=== PATIENT | female | born 2000 | race Caucasian/White ===

== ENCOUNTER 2020-12-28 11:50 | Outpatient (RCR) | payer MEDICAID | END 2021-03-02 08:41 | disposition home or self-care (01) | LOC: WSPT 11:50 → EDBD 11:50 → WSPT 13:00 | DX: M41.9 Scoliosis, unspecified (principal); M54.5 Low back pain ==

== ENCOUNTER 2021-01-11 14:53 | Emergency (ER) | payer MEDICAID ==
[~2021-01-11] VITALS: Ht 154.9 cm; Wt 61.4 kg
[2021-01-11 15:03] VITALS: TEMP 98.6
[2021-01-11 16:49] VITALS: BP 101/69; PULSE 74
== END 2021-01-11 16:49 | disposition home or self-care (01) ==
LOC: COL.ER 14:53
DX: R51.9 Headache, unspecified (principal); R11.0 Nausea
CPT/HCPCS: J1885

== ENCOUNTER 2021-09-12 15:26 | Emergency (ER) | payer MEDICAID ==
[~2021-09-12] VITALS: Ht 154.9 cm; Wt 61.4 kg
[2021-09-12 15:42] VITALS: TEMP 98.5
[2021-09-12 17:11] VITALS: BP 108/76; PULSE 72
== END 2021-09-12 17:12 | disposition home or self-care (01) ==
LOC: COL.ER 15:26
DX: R51.9 Headache, unspecified (principal)

== ENCOUNTER 2024-06-06 01:23 | Outpatient (CLI) | payer MEDICAID ==
[~2024-06-06] VITALS: Ht 154.9 cm; Wt 70.5 kg
[~2024-06-06 01:23] MED LIST: CARAFATE 1GM1 G PO; PRILOSEC 20MG20 MG PO
--- NOTE | 2024-06-06 01:35 | NUR ---
PT PRESENTS TO L&D WITH C/O HAVING A MUCUS DISCHARGE AND LOW BACK ACHE. DENIES BLEEDING, SHE DOES NOT THINK HER WATER BROKE BECAUSE IT IS MORE MUCUS. DENIES FEELING CONTRACTIONS, DENIES BLEEDING. PT ASSISTED TO BED, MONITORS PLACED ON HER ABD. NITRAZINE X 2 BOTH NEGATIVE. SVE /-2, CERVIX POSTERIOR.
[2024-06-06] MEDS ORDERED: LR 1,000 ML IV PRN (01:45)
[2024-06-06 02:00] VITALS: BP 96/50; PULSE 79; TEMP 98.3
--- NOTE | 2024-06-06 02:32 | NUR ---
PT AMB TO BR TO VOID.
[2024-06-06 02:45] VITALS: BP 101/61; PULSE 80; TEMP 98.1
--- NOTE | 2024-06-06 02:50 | NUR ---
DR GARCIA INFORMED PT IS HERE WITH C/O MUCUS WHEN SHE WENT TO THE BR AND LOW ABD PRESSURE. SHE IS NOT SURE IF HER WATER BROKE BECAUSE IT WAS JUST MUCUS AND NOT LIQUID CONSISTENCY. PT DENIES FEELING CTX'S OR BLEEDING. FHR CATEGORY 1. IRREGULAR CTX'S THAT PT IS NOT FEELING. CERVIAL EXAM WAS DONE TWICE AN HOUR APART. NO CERVICAL CHANGE NOTED AND THE SECOND VAG EXAM WAS MUCH HARDER TO GET TO THE CERVIX AND IT HAD MOVED BEHIND THE BABIES HEAD. ORDER TO DC PT TO HOME, INSTRUCT HER TO REST AND DRINK LOTS OF WATER. KEEP HER SCHEDULED APPOINTMENT.
--- NOTE | 2024-06-06 03:00 | NUR ---
PT GIVEN WRITTEN AND VERBAL DISCHARGE INSTRUCTIONS TO REST, DRINK MORE WATER, KEEP HER NEXT SCHEDULED APPOINTMENT AND RETURN IF SHE FEELS ANY GUSH OF FLUID OR STRONG REGULAR CONTRACTIONS. PT VERBALIZED UNDERSTANDING. DISCHARGE PAPERS SIGNED AND PT AMB OUT WITH HER .
== END 2024-06-06 03:00 | disposition home or self-care (01) ==
LOC: LDRO 01:23 → LDR 01:40 → LDRO 03:00
DX: O26.893 Other specified pregnancy related conditions, third trimester (principal); M54.50 Low back pain, unspecified; Z3A.38 38 weeks gestation of pregnancy
CPT/HCPCS: OP

== ENCOUNTER → 2024-06-11 | Outpatient (CLI) | payer MEDICAID ==
[~2024-06-11] VITALS: Ht 160 cm; Wt 69.1 kg
[~2024-06-11] MED LIST changes: +IBU600 MG PO; +LR 1,000 ML IV PRN; +PRENATAL TABLET PO
--- NOTE | 2024-06-11 20:10 | NUR ---
G2L1 at 38 weeks and 6 days arrives to hospital with complaint of contractions every "30 minutes or less". Denies vaginal bleeding but reports having more discharge. Reports good movement. Denies any problems this . Clean gown on. Oriented to room. Bed in low and locked position. Call light within reach. US and toco explained and applied. Admission assessment started. Vitals obtained. SVE 2/50/-3, ballotable, membranes intact. Records show SVE 2/50/-5 in office today.
[2024-06-11 20:30] VITALS: BP 107/50; PULSE 88; TEMP 98
--- NOTE | 2024-06-11 21:22 | NUR ---
Pt reports much movement over the last 15 minutes. Reviewed plan of care to recheck cervix, pt requesting to void before cervical exam.
[2024-06-11 21:40] VITALS: BP 109/59; PULSE 77
--- NOTE | 2024-06-11 21:40 | NUR ---
SVE unchanged. Pt reports no change in conctractions. Reviewed discharge plan and return precautions, verbalized understanding. Monitors off. Pt ambulated off unit with mother in stable condition.
== END ==
LOC: LDRO 20:03
DX: O47.1 False labor at or after 37 completed weeks of gestation (principal); Z3A.38 38 weeks gestation of pregnancy

== ENCOUNTER 2024-06-12 07:10 | Inpatient (IN) | payer MEDICAID ==
[2024-06-12] VITALS (37 sets, daily range): BP systolic 80–137; BP diastolic 43–73; PULSE 66–111; TEMP 97.6–98.9
[~2024-06-12] VITALS: Ht 160 cm; Wt 69.1 kg
[~2024-06-12 07:10] MED LIST changes: -IBU600 MG PO; -LR 1,000 ML IV PRN
--- NOTE | 2024-06-12 07:45 | NUR ---
714- Pt arrives on unit ambulatory with complaints of SROM at approx 0700 this morning. Pt states she was seen yesterday for labor check but was sent home. Oriented to room. Pt into bathroom to void and change into gown. 723- Pt into bed, EFM and TOCO on and tracing. O2 sat monitor on and tracing maternal HR. VSS. Assessments completed. Pt denies UCs/VB. Reports clear fluid with SROM. +FM per Pt.
[2024-06-12] MEDS ORDERED: LR 1,000 ML IV SCH ×2 (08:00→10:30)
[2024-06-12] MEDS ORDERED: LR 1,000 ML IV PRN ×2 (08:00)
--- NOTE | 2024-06-12 08:30 | NUR ---
0825- Consent forms discussed and signed, questions answered. Pt rates contraction pain 10/10 but coping well per this RN. Discusses epidural vs ambulation/BB. Pt wishes to void then ambulate/use BB. EFM and TOCO off.
[2024-06-12 08:46] LABS: BASO % 0.2 % (0.0-2.0); EOS % 0.3 % (0.0-4.0); GRAN # 6.6 K/mm3 (1.4-6.5); GRAN % 70.4 % (42.2-75.2); HEMOGLOBIN 10.6 g/dl (12.5-16.0); LYMPH % 21.6 % (20.0-51.0); MEAN CELL VOLUME 85 fl (80.0-100.0); MEAN CORPUSCULAR HEMOGLOBIN 28 pg (27-31); MEAN CORPUSCULAR HGB CONC 32 g/dl (33.0-37.0); MEAN PLATELET VOLUME 11.8 fl (7.4-10.4); MONO # 0.7 K/mm3 (0.1-0.6); MONO % 7.1 % (1.7-9.3); PLATELET COUNT 149 K/mm3 (130-400); RED BLOOD COUNT 3.86 M/mm3 (4.10-5.30); REDCELL DISTRIBUTION WIDTH-CV 13.6 % (11.5-14.5)
[2024-06-12 08:50] LABS: HEMATOCRIT 32.8 % (37.0-47.0)
--- NOTE | 2024-06-12 09:15 | NUR ---
3502- Dr Duncan and this RN at bedside, Pt transitions into bed. Bedside US by for position, noted to be vertex. MD discussed POC, Pt denies questions. Pt requests to remain in bed at this time. 912- Pt calls RN to bedside via call light. Pt very uncomfortable with contractions, requests epidural. Pt requests to void, EFM and TOCO off. Pt assisted into bathroom. Angel, CASTING CLEANER called for epidural placement. 09- Pt standing at bedside, leaning over bed to cope with UC pain. LR bolus initiated. This RN remains with Pt, coaching through [facility].
[2024-06-12] MEDS ORDERED: ROPivacaine PF 0.2% 200 ML IV ONE (09:39)
--- NOTE | 2024-06-12 10:00 | NUR ---
0944- PAPO Ortiz at bedside. Pt LL in bed, very uncomfortable with UCs. GUITAR REPAIRER okay with placing epidural in side lying position. 0950- Single shot by GUITAR REPAIRER. Pt tolerated well. 0958- Pt feeling pressure, SVE by this RN 4-5/100/-2. Pt assisted into semi-fowlers with WR. EFM and TOCO adjusted. This RN remains at bedside evaluating BPs and pain.
[2024-06-12] MEDS ORDERED: ePHEDrine 50 MG/10 ML VIAL IV PRN (10:30)
[2024-06-12] MEDS ORDERED: Ondansetron 4 MG/2 ML VIAL IV PRN (10:30)
[2024-06-12] MEDS ORDERED: diphenhydrAMINE 25 MG CAP PO PRN (10:30)
[2024-06-12] MEDS ORDERED: diphenhydrAMINE 50 MG/ML 1 ML VIAL IV PRN (10:30)
[2024-06-12] MEDS ORDERED: Naloxone 0.4 MG/ML VIAL IV PRN ×2 (10:30→15:45)
[2024-06-12] MEDS ORDERED: LR 500 ML IV PRN (10:30)
--- NOTE | 2024-06-12 10:30 | NUR ---
1016- FHR prolonged decel noted, Pt repositioned to LL. FHR heard to be slow but not able to trace on monitor, appears to be doubling with adjustment. Wolfgang, RN called to bedside to assist. Equipment gathered for FSE placement, SVE by this RN. Pt tolerated well. 1020- FHR returns to baseline of 135 bpm. This RN remains at bedside.
--- NOTE | 2024-06-12 11:00 | NUR ---
RN AT BEDSIDE, RECEIVED REPORT, PT DI, COMFORTABLE.
--- NOTE | 2024-06-12 14:02 | NUR ---
1330 SVE AT THIS TIME 10/100/+1. PT NOT FEELING PRESSURE. VS STABLE, FHR BASELINE 130 WITH ACCELERATIONS, NO DECELERATIONS. 1343 ROOM SET FOR DELIVERY, CALLED , BEGAN PUSHING WITH PT. 1350 AT BEDSIDE. 1402 VACUUM APPLIED D/T PROLONGED DECELERATION, PT UNDERSTANDS AND AGREED. 1 PULL, VACUUM REMOVED. VAVD PER . PT TOLERATED WELL. INFANT PLACED ON MATERNAL ABDOMEN WHERE CORD WAS CLAMPED AND CUT. PLACED ON MATERNAL ABDOMEN, CARE ASSUMED BY BONNY SIMMS. 1406 OF PLACENTA PER . PT TOLERATED WELL. LOCHIA WNL, FUNDUS FIRM AT U, PITOCIN BOLUS INFUSING PER PROTOCOL, VS STABLE. EPIDURAL PUMP OFF.PERINEUM INTACT. ICE PACK PAD PLACED. ROOM PUT BACK TOGETHER.
[2024-06-12] MEDS ORDERED: LR & Oxytocin 500 ML IV ONE (14:14)
[2024-06-12] MEDS ORDERED: Magnes Hydrox (MOM) 80 MG/ML 30 ML CUP PO PRN (14:15)
[2024-06-12] MEDS ORDERED: Loratadine 10 MG TAB PO PRN (14:15)
[2024-06-12] MEDS ORDERED: Acetaminophen 500 MG TAB PO SCH (15:45)
[2024-06-12] MEDS ORDERED: Measles/Mumps/Rubella Virus Vaccine Live w Diluent 0.5 ML VIAL SQ SCH (15:45)
[2024-06-12] MEDS ORDERED: Ibuprofen 600 MG TAB PO SCH (15:45)
[2024-06-12] MEDS ORDERED: oxyCODONE 5 MG TAB PO PRN (15:45)
[2024-06-12] MEDS ORDERED: Mag/Al Hydrox/Simeth Susp 30 ML CUP PO PRN (15:45)
[2024-06-12] MEDS ORDERED: Tdap Vaccine 0.5 ML SYRINGE IM SCH (15:45)
[2024-06-12] MEDS ORDERED: Phenylephrine/Mineral Oil/Petrolatum 57 GM TUBE RC PRN (15:45)
[2024-06-12] MEDS ORDERED: Witch Hazel 50% Pads Bulk TUB TP PRN (15:45)
--- NOTE | 2024-06-12 16:00 | NUR ---
PT UP TO SIDE OF BED, MOVED TO BATHROOM ON [facility] [address], EPIDURAL CATHETER REMOVED, PT UNABLE TO VOID AT THIS TIME, PAD AND PANTIES PLACED. PT MOVED TO ROOM USING [facility] [address]. EDUCATION PACKET PROVIDED.
[2024-06-12] MEDS ORDERED: Sennosides/Docusate 8.6-50 MG TAB PO SCH (17:00)
[2024-06-12] MEDS ORDERED: traZODone 50 MG TAB PO PRN (21:00)
[2024-06-13 05:04] VITALS: BP 99/48; PULSE 74; TEMP 97.9
[2024-06-13 08:18] VITALS: BP 90/54; PULSE 70; TEMP 98.1
[2024-06-13] MEDS ORDERED: Prenatal Vitamins/Iron/FA TAB PO SCH (09:00)
[2024-06-13] MEDS ORDERED: Influenza Virus Vaccine, Trivalent '24-25 0.5 ML SYRINGE IM SCH ×2 (09:00)
[2024-06-13] MEDS ORDERED: IBU600 MG PO (10:02)
[2024-06-13 16:54] VITALS: BP 98/50; PULSE 74; TEMP 98.3
[2024-06-13 19:55] VITALS: BP 101/42; PULSE 92; TEMP 97.9
[2024-06-14 07:28] VITALS: BP 107/58; PULSE 84; TEMP 98.2
[2024-06-14] MEDS ORDERED: Influenza Virus Vaccine, Trivalent '24-25 0.5 ML SYRINGE IM SCH (09:00)
--- NOTE | 2024-06-14 10:07 | NUR ---
Initial visit; Mom thanked Lithographic Stripper for coming in and offering God's blessings for the of her son. Dad on the phone. Lithographic Stripper wished them both well and let them know of the availability of Spiritual Care.
== END 2024-06-14 11:05 | disposition home or self-care (01) | DRG 807 ==
LOC: LDRO 07:10 → LDR 07:15 → OB 16:18
PROVIDERS: ADMIT Obstetrics & Gynecology
PROC: 10E0XZZ Delivery of Products of Conception, External Approach (ICD-10-PCS; principal; 2024-06-12)
DX: O80 Encounter for full-term uncomplicated delivery (principal); Z37.0 Single live birth; Z3A.39 39 weeks gestation of pregnancy
CPT/HCPCS: J2590; J2795; J7120